=== PATIENT | female | born 1980 | race Caucasian/White ===

== ENCOUNTER 2024-02-08 11:34 | Emergency (ER) | payer MEDICAID, OTHER ==
[~2024-02-08] VITALS: Ht 152.4 cm; Wt 52.6 kg
[2024-02-08 11:42] VITALS: BP 141/87; PULSE 109; RESP 18; TEMP 98.6; O2SAT 99
[2024-02-08 12:21] LABS: BASOPHILS # (AUTO) 0.1 K/uL (0.00-0.22); BASOPHILS % (AUTO) 1.5 % (0.0-2.0); EOSINOPHILS # (AUTO) 0.2 K/uL (0-0.4); EOSINOPHILS % (AUTO) 3.9 % (0.0-4.0); HEMATOCRIT 34.4 % (36-48); LYMPHOCYTES # (AUTO) 1.9 K/uL (2.5-16.5); LYMPHOCYTES % (AUTO) 32.3 % (20.5-51.1); MEAN CORPUSCULAR HEMOGLOBIN 24 pg (27-31); MEAN CORPUSCULAR HGB CONC 32 g/dL (33-37); MEAN CORPUSCULAR VOLUME 74.7 fL (80-94); MONOCYTES # (AUTO) 0.6 K/uL (0.8-1.0); MONOCYTES % (AUTO) 9.4 % (1.7-9.3); NEUTROPHILS # (AUTO) 3.2 K/uL (1.8-7.7); NEUTROPHILS % (AUTO) 52.9 % (42.2-75.2); PLATELET COUNT (AUTO) 394 K/uL (140-450); RED BLOOD CELL COUNT(AUTO) 4.61 MIL/uL (4.20-5.40); RED CELL DISTRIBUTION WIDTH 20.2 % (11.6-13.7)
[2024-02-08 12:41] LABS: ALBUMIN 3.7 g/dL (3.4-5.0); ANION GAP 10.6 (8-16); CALCIUM 9.4 mg/dL (8.5-10.1); CARBON DIOXIDE 29.9 mmol/L (21-32); CREATININE 0.5 mg/dL (0.6-1.3); TOTAL BILIRUBIN 0.3 mg/dL (0.0-1.0); TOTAL PROTEIN, SERUM 7.6 g/dL (6.4-8.2)
[2024-02-08 12:50] LABS: POTASSIUM 2.5 mmol/L (3.5-5.1)
[2024-02-08 12:57] LABS: BILIRUBIN,URINE 2+ (NEGATIVE); BLOOD, URINE 3+ (NEGATIVE); LEUKOCYTE ESTERASE ,URINE TRACE (NEGATIVE); NITRITE, URINE POSITIVE (NEGATIVE); PROTEIN,URINE 2+ (NEGATIVE); UGLUCOSE 1+ (NEGATIVE)
[2024-02-08 12:58] LABS: APPEARANCE,URINE BLOODY (CLEAR); COLOR,URINE BLOODY (YELLOW)
[2024-02-08 12:59] LABS: ICTOTEST NEGATIVE (NEGATIVE)
[2024-02-08 13:00] LABS: BACTERIA,URINE 2+ /HPF (None Seen); RBC,URINE 0-5 /HPF (0-5)
[2024-02-08 13:01] LABS: MUCUS,URINE 1+ /LPF (None Seen)
[2024-02-08] MEDS: POTASSIUM CHLORIDE 10 MEQ TABER PO ONE (13:05)
[2024-02-08] MEDS: KCL 20 MEQ IN 100 mL PREMIX 100 ML IV ONE ×2 (13:08→16:18)
[2024-02-08] MEDS: NACL 0.9% 1,000 ML IV ONE (13:56)
[2024-02-08] MEDS: MORPHINE SULFATE 4 MG/ML SYR IVP ONE (14:34)
[2024-02-08] MEDS ORDERED: cefTRIAXone 1,000 MG VIAL ONE (14:38)
[2024-02-08] MEDS ORDERED: NITR100C7 PO (15:23)
[2024-02-08] MEDS ORDERED: CYCL-711 PO (15:23)
[2024-02-08] MEDS ORDERED: LID5T TP (15:23)
[2024-02-08] MEDS ORDERED: ACET500T99 PO (15:23)
[2024-02-08] MEDS ORDERED: IBUP-1842 PO (15:23)
[2024-02-08 18:16] VITALS: BP 134/73; PULSE 110; RESP 18; TEMP 98.6; O2SAT 100
== END 2024-02-08 18:17 | disposition home or self-care (01) ==
LOC: MED 11:34
DX: S10.93XA Contusion of unspecified part of neck, initial encounter (principal); S20.219A Contusion of unspecified front wall of thorax, initial encounter; S30.1XXA Contusion of abdominal wall, initial encounter; N39.0 Urinary tract infection, site not specified; E87.6 Hypokalemia; E11.9 Type 2 diabetes mellitus without complications; I10 Essential (primary) hypertension; Z90.49 Acquired absence of other specified parts of digestive tract; Z98.890 Other specified postprocedural states; Z79.899 Other long term (current) drug therapy; M54.6 Pain in thoracic spine; M54.50 Low back pain, unspecified; R51.9 Headache, unspecified; V89.2XXA Person injured in unspecified motor-vehicle accident, traffic, initial encounter; Y93.89 Activity, other specified; Y92.410 Unspecified street and highway as the place of occurrence of the external cause; Y99.8 Other external cause status
CPT/HCPCS: 36415; 70450; 71260; 72125; 72128; 72131; 74177; 80053; 81001; 81025; 83690; 85025; 87086; 93005; 96365; 96366; 96367; 96368; 96375; 99285; J0696; J2270; J3480; J7030; Q9967